=== PATIENT | male | born 1975 | race Caucasian/White ===

== ENCOUNTER 2023-02-18 15:05 | Emergency (ER) | payer OTHER, SELFPAY ==
[2023-02-18] VITALS (31 sets, daily range): BP systolic 114–140; BP diastolic 64–91; PULSE 56–92; RESP 30; TEMP 36.5; O2SAT 92–98; BMI 29.3
--- NOTE | 2023-02-18 15:26 | XR_ITS ---
Patient: WILLIAMS ADRIAN Facility:?[facility] Patient ID:?[id number] Site Patient ID:?[id number] Site :?[id number] Study:?XRay-Chest 2 VIEW-02/18/2023 3:42:29 PM Ordering Physician:Donis Ricci Final Report: INDICATION: Chest pain, not otherwise described. TECHNIQUE: Two views COMPARISON: 10/21/2021. FINDINGS: Patient positioning: The patient is not rotated. Adequate inspiration. Heart and mediastinum: Normal transverse dimension of the cardiac silhouette. No significant abnormalities. Lungs and pleural spaces: Unchanged elevated left hemidiaphragm and bibasilar peripheral band opacities consistent with nonspecific minor fibrosis and/or subsegmental discoid atelectasis. No focal pulmonary opacity or significant pleural effusion. Bones and soft tissues: No acute findings. IMPRESSION: No acute cardiopulmonary process or significant incidental findings. Dictated by Roderick Grande MD @ 02/18/2023 4:16:17 PM Signed by:?Roderick Grande MD @02/18/2023 4:16:17 PM (Electronic Signature)
--- NOTE | 2023-02-18 15:29 | ED.GENADULT ---
HPI - General Adult General Chief complaint: Chest Pain <Keiry Wallis MD - Last Filed: 02/20/23 10:52> Stated complaint: Tightness in chest, short of breath <Keiry Wallis MD - Last Filed: 02/20/23 10:52> Time Seen by Provider: 02/18/23 15:26 <Keiry Wallis MD - Last Filed: 02/20/23 10:52> Source: patient <Keiry Wallis MD - Last Filed: 02/20/23 10:52> Mode of arrival: ambulatory <Keiry Wallis MD - Last Filed: 02/20/23 10:52> Limitations: no limitations <Keiry Wallis MD - Last Filed: 02/20/23 10:52> History of Present Illness HPI narrative: 47-year-old male presenting today with chest pain. Pain is been present going on day 3. Pain is located in the left chest and radiates through to the back right between the shoulder blades. Nothing makes it better or worse. 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 He did not go to work today as he felt that the pain was getting worse. He states that is very difficult to take deep breaths, he feels short of breath. He denies fevers or chills. He has felt very nauseated and has been gagging. Patient has a history of hyperlipidemia, is on a statin, unsure which 1. He has no personal history of coronary artery disease, does have a history of pneumothorax. He does have several members of his family who have had heart attacks. <Keiry Wallis MD - Last Filed: 02/20/23 10:52> Related Data Home medications: Home Medications Medication Instructions Recorded Confirmed cholesterol med 02/18/23 Previous Rx's Medication Instructions Recorded hydrocodone 5 mg-acetaminophen 325 1 tab PO Q4-6H PRN pain #15 tabs 02/18/23 mg tablet ketorolac 10 mg tablet 10 mg PO Q8H 5 days #15 tabs 02/18/23 <Keiry Wallis MD - Last Filed: 02/20/23 10:52> Allergies/adverse reactions: Allergies Allergy/AdvReac Type Severity Reaction Status Date / Time No Known Drug Allergies Allergy Verified 02/18/23 15:08 <Keiry Wallis MD - Last Filed: 02/20/23 10:52> Review of Systems Status of ROS: Reports: 10 or more systems reviewed and unremarkable except as noted in History and below <Keiry Wallis MD - Last Filed: 02/20/23 10:52> [facility] Social History: Social History Smoking Status: Never smoker How often do you have a drink containing alcohol: never AUDIT-C Alcohol total score: 0 Non-prescribed substance use: denies use <Keiry Wallis MD - Last Filed: 02/20/23 10:52> Exam Narrative: Exam Narrative: Well-nourished well-developed patient, is tearful. Alert and oriented x3. Answers questions appropriately. Thoughts are goal oriented and rational. No tangential or magical thinking noted. Patient speaks in full sentences without needing to catch his breath. HEENT: Normocephalic atraumatic. Pupils are equally round reactive to light. Extraocular muscles are intact. Conjunctivae are moist without any icterus noted. Moist mucous membranes. Posterior pharynx is normal. Neck is soft without any lymphadenopathy or thyromegaly. No masses are appreciated. Cardiovascular: Heart is regular rate and rhythm S1 and S2 are present without any murmurs. Lungs: Clear to auscultation bilaterally no wheezes rhonchi or rales are appreciated. Patient has a very hard time taking a deep breath secondary to pain. I cannot reproduce his pain on palpation. Abdomen: Soft and nontender nondistended with normal bowel sounds. No guarding or rebound. Extremities: Bilateral lower extremities are without edema. Skin: Well perfused without any obvious rashes. <Keiry Wallis MD - Last Filed: 02/20/23 10:52> Const: Vital Signs, click to edit/add: Vital Signs - 24 hr 02/18/23 15:09 02/18/23 15:31 02/18/23 15:32 Temperature 97.7 F Pulse Rate 66 68 Pulse Rate [Pulse Oximeter] 72 Respiratory Rate 30 H Blood Pressure 115/71 Blood Pressure [Le ft Upper Arm] 135/89 Pulse Oximetry 98 96 96 Oxygen Delivery Me thod Room Air 02/18/23 15:45 02/18/23 15:46 02/18/23 16:01 Temperature Pulse Rate 67 63 59 L Pulse Rate [Pulse Oximeter] Respiratory Rate Blood Pressure 121/84 Blood Pressure [Le ft Upper Arm] Pulse Oximetry 97 97 98 Oxygen Delivery Me thod 02/18/23 16:02 02/18/23 16:12 02/18/23 16:15 Temperature Pulse Rate 60 60 69 Pulse Rate [Pulse Oximeter] Respiratory Rate Blood Pressure 131/91 H 134/81 Blood Pressure [Le ft Upper Arm] Pulse Oximetry 98 95 95 Oxygen Delivery Me thod 02/18/23 16:22 02/18/23 16:30 02/18/23 16:32 Temperature Pulse Rate 62 59 L 92 Pulse Rate [Pulse Oximeter] Respiratory Rate Blood Pressure 116/70 120/91 H Blood Pressure [Le ft Upper Arm] Pulse Oximetry 95 96 96 Oxygen Delivery Me thod 02/18/23 16:42 02/18/23 16:45 02/18/23 16:51 Temperature Pulse Rate 58 L 59 L 58 L Pulse Rate [Pulse Oximeter] Respiratory Rate Blood Pressure 118/67 119/67 Blood Pressure [Le ft Upper Arm] Pulse Oximetry 94 98 98 Oxygen Delivery Me thod 02/18/23 17:00 02/18/23 17:02 02/18/23 17:11 Temperature Pulse Rate 58 L 57 L 61 Pulse Rate [Pulse Oximeter] Respiratory Rate Blood Pressure 118/64 123/87 Blood Pressure [Le ft Upper Arm] Pulse Oximetry 93 96 93 Oxygen Delivery Me thod 02/18/23 17:15 02/18/23 17:21 02/18/23 17:30 Temperature Pulse Rate 63 58 L 76 Pulse Rate [Pulse Oximeter] Respiratory Rate Blood Pressure 124/85 Blood Pressure [Le ft Upper Arm] Pulse Oximetry 96 93 96 Oxygen Delivery Me thod 02/18/23 17:32 02/18/23 17:41 02/18/23 17:45 Temperature Pulse Rate 57 L 56 L 59 L Pulse Rate [Pulse Oximeter] Respiratory Rate Blood Pressure 125/81 127/84 Blood Pressure [Le ft Upper Arm] Pulse Oximetry 95 96 96 Oxygen Delivery Me thod <Keiry Wallis MD - Last Filed: 02/20/23 10:52> Vital Signs, click to edit/add: Vital Signs - 24 hr 02/18/23 15:09 02/18/23 15:31 02/18/23 15:32 Temperature 97.7 F Pulse Rate 66 68 Pulse Rate [Pulse Oximeter] 72 Respiratory Rate 30 H Blood Pressure 115/71 Blood Pressure [Le ft Upper Arm] 135/89 Pulse Oximetry 98 96 96 Oxygen Delivery Me thod Room Air 02/18/23 15:45 02/18/23 15:46 02/18/23 16:01 Temperature Pulse Rate 67 63 59 L Pulse Rate [Pulse Oximeter] Respiratory Rate Blood Pressure 121/84 Blood Pressure [Le ft Upper Arm] Pulse Oximetry 97 97 98 Oxygen Delivery Me thod 02/18/23 16:02 02/18/23 16:12 02/18/23 16:15 Temperature Pulse Rate 60 60 69 Pulse Rate [Pulse Oximeter] Respiratory Rate Blood Pressure 131/91 H 134/81 Blood Pressure [Le ft Upper Arm] Pulse Oximetry 98 95 95 Oxygen Delivery Me thod 02/18/23 16:22 02/18/23 16:30 02/18/23 16:32 Temperature Pulse Rate 62 59 L 92 Pulse Rate [Pulse Oximeter] Respiratory Rate Blood Pressure 116/70 120/91 H Blood Pressure [Le ft Upper Arm] Pulse Oximetry 95 96 96 Oxygen Delivery Me thod 02/18/23 16:42 02/18/23 16:45 02/18/23 16:51 Temperature Pulse Rate 58 L 59 L 58 L Pulse Rate [Pulse Oximeter] Respiratory Rate Blood Pressure 118/67 119/67 Blood Pressure [Le ft Upper Arm] Pulse Oximetry 94 98 98 Oxygen Delivery Me thod 02/18/23 17:00 02/18/23 17:02 02/18/23 17:11 Temperature Pulse Rate 58 L 57 L 61 Pulse Rate [Pulse Oximeter] Respiratory Rate Blood Pressure 118/64 123/87 Blood Pressure [Le ft Upper Arm] Pulse Oximetry 93 96 93 Oxygen Delivery Me thod 02/18/23 17:15 02/18/23 17:21 02/18/23 17:30 Temperature Pulse Rate 63 58 L 76 Pulse Rate [Pulse Oximeter] Respiratory Rate Blood Pressure 124/85 Blood Pressure [Le ft Upper Arm] Pulse Oximetry 96 93 96 Oxygen Delivery Me thod 02/18/23 17:32 02/18/23 17:41 02/18/23 17:45 Temperature Pulse Rate 57 L 56 L 59 L Pulse Rate [Pulse Oximeter] Respiratory Rate Blood Pressure 125/81 127/84 Blood Pressure [Le ft Upper Arm] Pulse Oximetry 95 96 96 Oxygen Delivery Me thod <Lazaro Lewis MD - Last Filed: 02/18/23 18:13> Course Course ED Course: EKG done upon arrival, read by me, shows normal sinus rhythm with a pulse of 74. Initial point of care troponin is 0. IV is established, IV fluids started and morphine given. Chest x-ray was done right away to rule out pneumothorax. <Keiry Wallis MD - Last Filed: 02/20/23 10:52> Vital Signs Vital signs: Initial Vital Signs Temperature 97.7 F 02/18/23 15:09 Temperature Source Temporal Artery Scan 02/18/23 15:09 Pulse Rate 72 02/18/23 15:09 Pulse Rhythm Regular 02/18/23 15:09 Respiratory Rate 30 H 02/18/23 15:09 Blood Pressure 135/89 02/18/23 15:09 Blood Pressure Mean 104 02/18/23 15:09 Blood Pressure Position Supine 02/18/23 15:09 Pulse Oximetry 98 02/18/23 15:09 Oxygen Delivery Method Room Air 02/18/23 15:09 Vital Signs Temperature 97.7 F 02/18/23 15:09 Pulse Rate 72 02/18/23 15:09 Respiratory Rate 30 H 02/18/23 15:09 Blood Pressure 135/89 02/18/23 15:09 Pulse Oximetry 98 02/18/23 15:09 Oxygen Delivery Method Room Air 02/18/23 15:09 Temperature 97.7 F 02/18/23 15:09 Pulse Rate 78 02/18/23 18:22 Respiratory Rate 30 H 02/18/23 15:09 Blood Pressure 140/90 H 02/18/23 18:22 Pulse Oximetry 95 02/18/23 18:22 Oxygen Delivery Method Room Air 02/18/23 15:09 <Keiry Wallis MD - Last Filed: 02/20/23 10:52> Initial Vital Signs Temperature 97.7 F 02/18/23 15:09 Temperature Source Temporal Artery Scan 02/18/23 15:09 Pulse Rate 72 02/18/23 15:09 Pulse Rhythm Regular 02/18/23 15:09 Respiratory Rate 30 H 02/18/23 15:09 Blood Pressure 135/89 02/18/23 15:09 Blood Pressure Mean 104 02/18/23 15:09 Blood Pressure Position Supine 02/18/23 15:09 Pulse Oximetry 98 02/18/23 15:09 Oxygen Delivery Method Room Air 02/18/23 15:09 Vital Signs Temperature 97.7 F 02/18/23 15:09 Pulse Rate 72 02/18/23 15:09 Respiratory Rate 30 H 02/18/23 15:09 Blood Pressure 135/89 02/18/23 15:09 Pulse Oximetry 98 02/18/23 15:09 Oxygen Delivery Method Room Air 02/18/23 15:09 Temperature 97.7 F 02/18/23 15:09 Pulse Rate 78 02/18/23 18:22 Respiratory Rate 30 H 02/18/23 15:09 Blood Pressure 140/90 H 02/18/23 18:22 Pulse Oximetry 95 02/18/23 18:22 Oxygen Delivery Method Room Air 02/18/23 15:09 <Lazaro Lewis MD - Last Filed: 02/18/23 18:13> Medications Administered Medications: Discontinued Medications Generic Name Dose Route Start Last Admin Trade Name Freq PRN Reason Stop Dose Admin Sodium Chloride 1,000 mls @ 1,000 mls/hr 02/18/23 15:45 02/18/23 16:52 0.9 % Sodium Chloride 1000 Ml IV 02/18/23 16:44 Infused .Q1H VIDYA Infusion Morphine Sulfate 2 mg 02/18/23 15:33 02/18/23 15:46 Morphine 2 Mg/Ml Inj IVP 02/18/23 15:34 2 mg ONCE ONE Administration <Keiry Wallis MD - Last Filed: 02/20/23 10:52> Discontinued Medications Generic Name Dose Route Start Last Admin Trade Name Freq PRN Reason Stop Dose Admin Sodium Chloride 1,000 mls @ 1,000 mls/hr 02/18/23 15:45 02/18/23 16:52 0.9 % Sodium Chloride 1000 Ml IV 02/18/23 16:44 Infused .Q1H VIDYA Infusion Morphine Sulfate 2 mg 02/18/23 15:33 02/18/23 15:46 Morphine 2 Mg/Ml Inj IVP 02/18/23 15:34 2 mg ONCE ONE Administration <Lazaro Lewis MD - Last Filed: 02/18/23 18:13> Medical Decision Making MDM Narrative Medical decision making narrative: Care for this patient was transferred to [place] at the end of Dr. Wallis's shift. A CT scan of the chest, abdomen and pelvis was completed and results were pending at the time. Use results of returned with no acute findings. The patient's discomfort is likely due to chest wall pain. He states that he was doing exertional activities over the weekend as he was helping someone move to a new location. The patient received a rib belt and I did provide prescriptions for Toradol and a few tablets of [place]. He is okay <Lazaro Lewis MD - Last Filed: 02/18/23 18:13> Lab Data Labs: Lab Results 02/18/23 02/18/23 Range/Units 15:10 15:27 WBC 6.36 (4.50-11.00) K/uL RBC 5.18 (4.30-5.90) m/uL Hgb 15.0 (13.5-17.5) gm/dL Hct 44.2 (37.0-53.0) % MCV 85 (80-100) fL MCH 29 (26-34) pg MCHC 34 (32-36) gm/dL RDW Coeff of Hermila 12.0 (11.5-15.5) % Plt Count 191 (140-440) K/uL Neut % (Auto) 60.5 (42.0-72.0) % Lymph % (Auto) 29.4 (20-44) % [place] % (Auto) 8.2 (0.0-11.0) % Eos % (Auto) 1.1 (0.0-7.0) % Baso % (Auto) 0.2 (0.0-3.0) % Neut # (Auto) 3.85 (1.7-7.0) K/uL Lymph # (Auto) 1.87 (0.90-2.90) K/uL [place] # (Auto) 0.50 (0.00-0.90) K/UL Eos # (Auto) 0.07 (0.00-0.50) K/uL Baso # (Auto) 0.01 (0.00-0.30) K/uL Abs Immat Gran (auto) 0.04 (0.00-0.30) K/uL Imm/Tot Granulo (auto) 0.6 % D-Dimer Quant (PE/DVT) 0.31 (0.00-0.50) ug/ml VBG pH 7.456 H (7.32-7.43) VBG pCO2 33 L (40-50) mmHG VBG pO2 81.4 H (25-47) mmHG VBG HCO3 23 (21-28) mmol/L Sodium 142 (135-149) mmol/L Potassium 4.0 (3.6-5.1) mmol/L Chloride 111 (96-114) mmol/L Carbon Dioxide 21 (20-32) mmol/L Anion Gap 10 (7-15) mEq/L BUN 20 (5-24) mg/dL Creatinine 1.2 (0.5-1.5) mg/dL Estimated Creat Clear 79.31 Estimated GFR 74 ml/min Glucose 128 H (60-115) mg/dL Lactate 1.6 (0.5-1.9) mmol/L Calcium 9.5 (8.4-10.6) mg/dL Total Bilirubin 0.5 (0.1-1.5) mg/dL Direct Bilirubin 0.0 (0.0-0.5) mg/dL AST 20 (12-35) U/L ALT 16 (4-50) U/L Alkaline Phosphatase 79 (40-150) U/L Troponin I < 0.01 L (0.01-0.04) ng/mL C-Reactive Protein < 0.5 L (0.5-1.0) mg/dL Total Protein 7.4 (6.0-8.3) g/dL Albumin 4.5 (3.3-5.0) g/dL SARS-CoV-2 (PCR) Negative SARS-CoV-2 (Negative) Influenza Type A (PCR) Negative PCR FLU A (Negative) Influenza Type B (PCR) Negative PCR FLU B (Negative) RSV (PCR) Negative PCR RSV (Negative) POC Troponin I 0.00 L (0.01-0.04) ng/ml <Keiry Wallis MD - Last Filed: 02/20/23 10:52> Lab Results 02/18/23 02/18/23 Range/Units 15:10 15:27 WBC 6.36 (4.50-11.00) K/uL RBC 5.18 (4.30-5.90) m/uL Hgb 15.0 (13.5-17.5) gm/dL Hct 44.2 (37.0-53.0) % MCV 85 (80-100) fL MCH 29 (26-34) pg MCHC 34 (32-36) gm/dL RDW Coeff of Hermila 12.0 (11.5-15.5) % Plt Count 191 (140-440) K/uL Neut % (Auto) 60.5 (42.0-72.0) % Lymph % (Auto) 29.4 (20-44) % [place] % (Auto) 8.2 (0.0-11.0) % Eos % (Auto) 1.1 (0.0-7.0) % Baso % (Auto) 0.2 (0.0-3.0) % Neut # (Auto) 3.85 (1.7-7.0) K/uL Lymph # (Auto) 1.87 (0.90-2.90) K/uL [place] # (Auto) 0.50 (0.00-0.90) K/UL Eos # (Auto) 0.07 (0.00-0.50) K/uL Baso # (Auto) 0.01 (0.00-0.30) K/uL Abs Immat Gran (auto) 0.04 (0.00-0.30) K/uL Imm/Tot Granulo (auto) 0.6 % D-Dimer Quant (PE/DVT) 0.31 (0.00-0.50) ug/ml VBG pH 7.456 H (7.32-7.43) VBG pCO2 33 L (40-50) mmHG VBG pO2 81.4 H (25-47) mmHG VBG HCO3 23 (21-28) mmol/L Sodium 142 (135-149) mmol/L Potassium 4.0 (3.6-5.1) mmol/L Chloride 111 (96-114) mmol/L Carbon Dioxide 21 (20-32) mmol/L Anion Gap 10 (7-15) mEq/L BUN 20 (5-24) mg/dL Creatinine 1.2 (0.5-1.5) mg/dL Estimated Creat Clear 79.31 Estimated GFR 74 ml/min Glucose 128 H (60-115) mg/dL Lactate 1.6 (0.5-1.9) mmol/L Calcium 9.5 (8.4-10.6) mg/dL Total Bilirubin 0.5 (0.1-1.5) mg/dL Direct Bilirubin 0.0 (0.0-0.5) mg/dL AST 20 (12-35) U/L ALT 16 (4-50) U/L Alkaline Phosphatase 79 (40-150) U/L Troponin I < 0.01 L (0.01-0.04) ng/mL C-Reactive Protein < 0.5 L (0.5-1.0) mg/dL Total Protein 7.4 (6.0-8.3) g/dL Albumin 4.5 (3.3-5.0) g/dL SARS-CoV-2 (PCR) Negative SARS-CoV-2 (Negative) Influenza Type A (PCR) Negative PCR FLU A (Negative) Influenza Type B (PCR) Negative PCR FLU B (Negative) RSV (PCR) Negative PCR RSV (Negative) POC Troponin I 0.00 L (0.01-0.04) ng/ml <Lazaro Lewis MD - Last Filed: 02/18/23 18:13> Imaging Data CTA Chest, Abd, Pelvis: Radiologist's impression: 1. No acute findings to explain chest pain. Normal thoracoabdominal aorta. 2. Incidental 9 mm solid left lower lobe nodule. Three-month follow-up noncontrast chest CT is recommended. <Lazaro Lewis MD - Last Filed: 02/18/23 18:13> Discharge Plan Discharge Clinical Impression: Chest wall pain <Keiry Wallis MD - Last Filed: 02/20/23 10:52> Patient Disposition: Home, Self-Care <Keiry Wallis MD - Last Filed: 02/20/23 10:52> Condition: Unchanged <Keiry Wallis MD - Last Filed: 02/20/23 10:52> Additional Instructions: take medication as needed and directed. Increase activity as tolerated. Follow up with MD return if worsening. <Keiry Wallis MD - Last Filed: 02/20/23 10:52> Prescriptions: New hydrocodone-acetaminophen 5-325 mg tablet 1 tab PO Q4-6H PRN (Reason: pain) Qty: 15 0RF ketorolac 10 mg tablet 10 mg PO Q8H 5 Days Qty: 15 0RF No Action cholesterol med <Keiry Wallis MD - Last Filed: 02/20/23 10:52> Follow Up/Referrals: Provider,Not a Local [Primary Care Provider] - <Keiry Wallis MD - Last Filed: 02/20/23 10:52> Stand Alone Forms: MyHealth Info Instructions <Keiry Wallis MD - Last Filed: 02/20/23 10:52>
[2023-02-18 15:35] LABS: Lactate* 1.6 mmol/L (0.5-1.9)
[2023-02-18 15:36] LABS: HCO3 VBG 23 mmol/L (21-28); PCO2 VBG 33 mmHG (40-50); PO2 VBG 81.4 mmHG (25-47); pH VBG 7.456 (7.32-7.43)
[2023-02-18 15:39] LABS: Basophils Absolute Auto 0.01 K/uL (0.00-0.30); Basophils Percent Auto 0.2 % (0.0-3.0); Eosinophils Absolute Auto 0.07 K/uL (0.00-0.50); Eosinophils Percent Auto 1.1 % (0.0-7.0); Hematocrit 44.2 % (37.0-53.0); Immature Granulocytes Abs Auto 0.04 K/uL (0.00-0.30); Immature Granulocytes Pct Auto 0.6 %; Lymphocytes Absolute Auto 1.87 K/uL (0.90-2.90); Lymphocytes Percent Auto 29.4 % (20-44); Mean Corpuscular HGB Conc 34 gm/dL (32-36); Mean Corpuscular Hemoglobin 29 pg (26-34); Mean Corpuscular Volume 85 fL (80-100); Monocytes Percent Auto 8.2 % (0.0-11.0); Neutrophils Absolute Auto 3.85 K/uL (1.7-7.0); Neutrophils Percent Auto 60.5 % (42.0-72.0); Platelet Count* 191 K/uL (140-440); Red Blood Count 5.18 m/uL (4.30-5.90); White Blood Count* 6.36 K/uL (4.50-11.00)
[2023-02-18 15:42] LABS: Slide Review Reflex No
--- NOTE | 2023-02-18 15:45 | CRLHL7_ITS ---
For Patients: As a result of the Century Cures Act, medical imaging exams and procedure reports are released immediately into your electronic medical record. You may view this report before your referring provider. If you have questions, please contact your health care provider. INDICATION: Chest pain. TECHNIQUE: CT chest without contrast and CT chest, abdomen and pelvis acquired with 95 cc Isovue 370 IV contrast, dissection protocol. COMPARISON: 10/21/2021, 12/13/2017. FINDINGS: CHEST: Cardiovascular structures: No thoracoabdominal aortic aneurysm, mural hematoma, dissection, or penetrating atherosclerotic ulcer. Heart size is normal. Mediastinum and gulshan: No mass or adenopathy. Lungs and pleura: 9 mm the juxtapleural posterior segment left lower lobe solid pulmonary nodule (5; 59) new compared to the prior studies of 10/21/2021 and 12/13/2017. Three-month follow-up CT is recommended. Chronically elevated left hemidiaphragm. Chest wall and axilla: No mass or adenopathy. Bones: Unremarkable for age. ABDOMEN AND PELVIS: Evaluation of the abdominopelvic viscera and mesenteric vasculature is limited due to timing of imaging relative to contrast bolus administration as this study is optimized for CT arterial angiography. Liver: Unremarkable. Gallbladder and bile ducts: Unremarkable. Pancreas: Unremarkable. Spleen: Unremarkable. Adrenal glands: Unremarkable. Kidneys: Benign 9 mm 18 HU left lower pole renal cortical cyst (6; 249). GI tract: Unremarkable. Vascular structures: Abdominal aorta is normal in caliber without evidence of dissection. Mesenteric arteries are patent. Lymph nodes: Unremarkable. Miscellaneous: Unremarkable. No free air or significant free fluid. Pelvic Organs: Unremarkable. Bones: L4-L5 disc degeneration. IMPRESSION: 1. No acute findings to explain chest pain. Normal thoracoabdominal aorta. 2. Incidental 9 mm solid left lower lobe nodule. Three-month follow-up noncontrast chest CT is recommended. RECOMMENDATION: 3-MONTH FOLLOW-UP NONCONTRAST CHEST CT. Please note that all CT scans at this facility use dose modulation, iterative reconstruction, and/or weight-based dosing when appropriate to reduce radiation dose to as low as reasonably achievable. Dictated by Roderick Grande MD @ 02/18/2023 4:29:45 PM (Electronically Signed)
[2023-02-18] MEDS: 0.9 % SODIUM CHLORIDE 1000 ml 1,000 ML IV (15:46)
[2023-02-18] MEDS: MORPHINE 2 MG/ML inj IVP (15:46)
[2023-02-18 15:52] LABS: Albumin* 4.5 g/dL (3.3-5.0); Chloride* 111 mmol/L (96-114)
[2023-02-18 15:53] LABS: Sodium* 142 mmol/L (135-149)
[2023-02-18 15:55] LABS: Creatinine* 1.2 mg/dL (0.5-1.5); Est. Creatinine Clearance* 79.31; Estimated Glomerular Filt Rate 74 ml/min
[2023-02-18 15:56] LABS: Alanine Aminotransferase* 16 U/L (4-50); Alkaline Phosphatase* 79 U/L (40-150); Anion Gap 10 mEq/L (7-15); Aspartate Amino Transferase* 20 U/L (12-35); Bilirubin Total* 0.5 mg/dL (0.1-1.5); Blood Urea Nitrogen* 20 mg/dL (5-24); Carbon Dioxide* 21 mmol/L (20-32); D Dimer Quantitative* 0.31 ug/ml (0.00-0.50); Glucose* 128 mg/dL (60-115); Total Protein* 7.4 g/dL (6.0-8.3)
[2023-02-18 15:57] LABS: Calcium* 9.5 mg/dL (8.4-10.6)
[2023-02-18 16:03] LABS: PCR FLU A Negative PCR FLU A (Negative); PCR FLU B Negative PCR FLU B (Negative); PCR RSV Negative PCR RSV (Negative)
[2023-02-18 16:04] LABS: C Reactive Protein* < 0.5 mg/dL (0.5-1.0)
[2023-02-18 16:23] LABS: SARS PCR* Negative SARS-CoV-2 (Negative)
[2023-02-18 16:29] LABS: Troponin I* < 0.01 ng/mL (0.01-0.04)
== END 2023-02-18 18:31 | disposition home or self-care (01) ==
PROVIDERS: Emergency Provider Family Medicine
DX: R07.89 Other chest pain (principal)
CPT/HCPCS: 36415; 71046; 74174; 80048; 80076; 82803; 83605; 84484; 85025; 85379; 86140; 87631; 93005; 94761; 96374; 99284; 99285; J2270; J7030; Q9967